=== PATIENT | male | born 1990 | race American Indian/Alaskan Native ===

== ENCOUNTER 2016-10-06 13:07 | Emergency (ER) | payer MEDICAID, OTHER ==
[2016-10-06 13:15] VITALS: O2SAT 97
--- NOTE | 2016-10-06 13:52 | C.PDOC ---
History Of Present Illness 26 yr old male presents to the ER with complaints of non productive cough for the past 1 week. Patient also states he has chest pain with coughing. States his mom was sick with similar symptoms the week prior. Denies fever, SOB, nausea , vomiting, abdominal pain, hematemesis, weakness or numbness. Time Seen by Provider: 10/06/16 13:25 Chief Complaint (Nursing): Chest Pain History Per: Patient History/Exam Limitations: no limitations Onset/Duration Of Symptoms: Days (1 week) Past Medical History Reviewed: Historical Data, Nursing Documentation, Vital Signs Vital Signs: Last Vital Signs Temp 98.1 F 10/06/16 13:14 Pulse 70 10/06/16 13:14 Resp 20 10/06/16 13:14 BP 133/86 10/06/16 13:14 Pulse Ox 97 10/06/16 14:57 Family History: States: No Known Family Hx - Social History Hx Alcohol Use: Yes Hx Substance Use: No - Immunization History Hx Tetanus Toxoid Vaccination: No Hx Influenza Vaccination: Yes Hx Pneumococcal Vaccination: No Review Of Systems Except As Marked, All Systems Reviewed And Found Negative. Constitutional: Negative for: Fever Cardiovascular: Positive for: Chest Pain (with cough) Respiratory: Positive for: Cough (Non productive). Negative for: Shortness of Breath Gastrointestinal: Negative for: Nausea, Vomiting, Abdominal Pain, Hematemesis Neurological: Negative for: Weakness, Numbness Physical Exam - Physical Exam Appears: Non-toxic, No Acute Distress Skin: Warm, Dry, No Rash Head: Atraumatic, Normacephalic Eye(s): bilateral: Normal Inspection, PERRL, EOMI Oral Mucosa: Moist Throat: Normal, No Erythema Neck: Normal, Normal ROM, No Supple Chest: Symmetrical, No Tenderness Cardiovascular: Rhythm Regular, No Murmur Respiratory: Normal Breath Sounds, No Rales, No Rhonchi, No Stridor, No Wheezing Gastrointestinal/Abdominal: Normal Exam, Soft, No Tenderness, No Guarding, No Rebound Extremity: Normal ROM, No Swelling Neurological/Psych: Oriented x3, Normal Speech, Normal Motor ED Course And Treatment ECG: Interpreted By Me ECG Rhythm: Sinus Rhythm ECG Interpretation: Normal Interpretation Of ECG: normal axis, normal ST-T wave changes. Rate From EC (BPM ) O2 Sat by Pulse Oximetry: 97 (on RA) Pulse Ox Interpretation: Normal - Other Rad CXR X-Ray: Viewed By Me, Read By Radiologist Interpretation: HISTORY: cough, chest pain. COMPARISON: No prior study available for comparison. TECHNIQUE: Chest PA and lateral. FINDINGS: LUNGS: No active pulmonary disease. PLEURA: No significant pleural effusion identified. No pneumothorax apparent. CARDIOVASCULAR: Normal. OSSEOUS STRUCTURES: No significant abnormalities. VISUALIZED UPPER ABDOMEN: Normal. OTHER FINDINGS: None. IMPRESSION: No active disease. Medical Decision Making Medical Decision Making: PLAN: * CXR * EKG * Prednisone PO On re-exam, the patient reports improvement of symptoms. Lungs are CTA, heart is RRR, abdomen is soft, non-tender and pt is tolerating PO well. Ambulatory in the ED with the steady gait. Follow up with the medical doctor within 1-2 days. Return if worsened. Disposition - Disposition Referrals: [facility] at [facility] [Outside] Disposition: HOME/ ROUTINE Disposition Time: 14:50 Condition: GOOD Additional Instructions: Follow up with the medical doctor within 1-2 days. Return if worsened. 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 - Scribe Statement The provider has reviewed the documentation as recorded by the Scribe Angi Arriaga All medical record entries made by the Scribe were at my direction and personally dictated by me. I have reviewed the chart and agree that the record accurately reflects my personal performance of the history, physical exam, medical decision making, and the department course for this patient. I have also personally directed, reviewed, and agree with the discharge instructions and disposition.
--- NOTE | 2016-10-06 15:03 | RAD ---
HISTORY: cough, chest pain COMPARISON: No prior study available for comparison TECHNIQUE: Chest PA and lateral FINDINGS: LUNGS: No active pulmonary disease. PLEURA: No significant pleural effusion identified. No pneumothorax apparent. CARDIOVASCULAR: Normal. OSSEOUS STRUCTURES: No significant abnormalities. VISUALIZED UPPER ABDOMEN: Normal. OTHER FINDINGS: None. IMPRESSION: No active disease.
[2016-10-06 15:15] VITALS: BP 127/62; PULSE 67; RESP 18; TEMP 98.8
--- NOTE | 2016-10-07 11:08 | CARD ---
APPROVED REPORT EKG Measurement Heart [id number] MS 160P-11 [id number] <Conclusion> Normal sinus rhythm Normal ECG
== END 2016-10-06 15:15 | disposition home or self-care (01) ==
LOC: C.ER 13:07
DX: J20.9 Acute bronchitis, unspecified (principal)

== ENCOUNTER 2018-08-02 11:56 | Emergency (ER) | payer MEDICAID, OTHER ==
[2018-08-02 12:09] VITALS: BP 143/79; PULSE 96; RESP 18; TEMP 99.1; O2SAT 98
--- NOTE | 2018-08-02 12:18 | C.PDOC ---
History Of Present Illness 28 year old male presents to ED with complaint of new onset left lateral chest wall mass that was initially noticed 2 weeks ago. Patient states "I just happened to feel it one day." Patient denies increase in mass size, redness, discharge, pain to the site, pain with movement, or trauma. NEW ONSET L LATERAL CHEST WALL MASS INITIALLY NOTICED 2 WEEKS AGO. NO PAIN "I JUST HAPPENED TO FEEL IT ONE DAY". NO INCR SIZE, REDNESS, DC, PAIN W MOVEMENT, OTHER ASSOC SX. NO TRAUMA EXAM NAD CHEST WALL +SUBCUT NODULE L PROX LAT CHEST WALL BELOW AXILLA. MOBILE NONTEND, NONFLUCTUANT PROBABLE LIPOMA SKIN NEG REMAINDER NEG MDM PROBABLE LIPOMA. NO ABSCESS, SIGNS INFECTION. ADVISED NEED FOR SURG /DERM IF NEEDED, RETURN IF QUICK SIZE INCREASE, PAIN Time Seen by Provider: 08/02/18 12:12 Chief Complaint (Nursing): Abnormal Skin Integrity History Per: Patient History/Exam Limitations: no limitations Onset/Duration Of Symptoms: Other (2 weeks) Current Symptoms Are (Timing): Still Present Location Of Injury: Left: Chest (mass) Quality Of Symptoms: denies: Painful, Itching, Swollen, Draining Past Medical History Reviewed: Historical Data, Nursing Documentation, Vital Signs Vital Signs: Last Vital Signs Temp 99.1 F 08/02/18 12:02 Pulse 96 H 08/02/18 12:02 Resp 18 08/02/18 12:02 BP 143/79 08/02/18 12:02 Pulse Ox 98 08/02/18 12:02 Primary Care Provider: Timo Garcia - Medical History PMH: No Chronic Diseases Surgical History: No Surg Hx Family History: States: Unknown Family Hx - Social History Hx Alcohol Use: Yes Hx Substance Use: No - Immunization History Hx Tetanus Toxoid Vaccination: No Hx Influenza Vaccination: Yes Hx Pneumococcal Vaccination: No Review Of Systems Except As Marked, All Systems Reviewed And Found Negative. Skin: Positive for: Other (mass to the left lateral chest wall) Physical Exam - Physical Exam Appears: Well, Non-toxic, No Acute Distress Skin: Normal Color, Warm, Dry, No Rash, No Ecchymosis Head: Atraumatic, Normacephalic Neck: Normal ROM, Supple Chest: Symmetrical, No Deformity, No Tenderness, Other (+ subcutaneous nodule to the left proximal lateral chest wall below the axilla, mobile, nontender, no fluctuance; probable lipoma) Cardiovascular: Rhythm Regular, No Murmur Respiratory: No Accessory Muscle Use, No Rales, No Rhonchi, No Wheezing Gastrointestinal/Abdominal: Soft, No Tenderness Extremity: Capillary Refill (<2 seconds) Extremity: Bilateral: Atraumatic, Normal Color And Temperature, Normal ROM Pulses: Left Radial: Normal, Right Radial: Normal Neurological/Psych: Oriented x3, Normal Speech, Normal Cognition ED Course And Treatment O2 Sat by Pulse Oximetry: 98 (in RA) Pulse Ox Interpretation: Normal Progress Note: Probable lipoma. No abscess or signs of infection. 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 Patient advised to return if mass increases in size quickly or pain. Discussed plan with patient who expresses understanding. All questions answered and there is agreement with the plan to discharge home with instructions. Patient stable for discharge. Return if symptoms persist or worsen. Disposition Counseled Patient/Family Regarding: Diagnosis, Need For Followup - Disposition Referrals: YOUR,PMD [Other] Disposition: HOME/ ROUTINE Disposition Time: 12:16 Condition: GOOD Instructions: Lipoma Forms: [employer] (Irish) - Clinical Impression Clinical Impression: Lipoma - Scribe Statement The provider has reviewed the documentation as recorded by the Scribe (Juliette Uriarte) All medical record entries made by the Scribe were at my direction and personally dictated by me. I have reviewed the chart and agree that the record accurately reflects my personal performance of the history, physical exam, medical decision making, and the department course for this patient. I have also personally directed, reviewed, and agree with the discharge instructions and disposition.
== END 2018-08-02 12:24 | disposition home or self-care (01) ==
LOC: C.ER 11:56
DX: D17.1 Benign lipomatous neoplasm of skin and subcutaneous tissue of trunk (principal)